=== PATIENT | female | born 1990 | race Caucasian/White ===

== ENCOUNTER → 2021-02-26 | Outpatient (CLI) | payer OTHER ==
--- NOTE | 2021-02-26 16:58 | RAD ---
Site ID: [id number] EXAMINATION: XR RT WRIST 3VIEWS, XR HAND_RIGHT 3 VIEWS. HISTORY: 30 years Female Reason: PAIN ALONG DORSAL ASPECT OF ULNAR RADIUS, PALMAR ASPECT OF HAND / Spl. Instructions: / History: . Right hand and wrist pain COMPARISON: None. FINDINGS: No fracture, dislocation or radiopaque foreign body seen in 3 views of the right hand and 3 views of the right wrist. The joint spaces and articular surfaces appear unremarkable. IMPRESSION: Unremarkable exam. Electronically signed by: Silvestre Cast MD (02/26/2021 4:55 PM) [id number]
== END ==
LOC: RAD 16:36
PROVIDERS: ATTEND Nurse Practitioner Family
DX: M25.531 Pain in right wrist (principal)
CPT/HCPCS: 73110; 73130